=== PATIENT | male | born 1985 | race Caucasian/White ===

== ENCOUNTER 2018-07-26 08:38 | Outpatient (CLI) | payer OTHER ==
[2018-07-26 09:13] LABS: % BASOPHILS 0.5 % (0.0-2.0); % EOSINOPHILS 5.1 % (0.0-5.0); % LYMPHOCYTES 28.8 % (20.0-50.0); % MONOCYTES 9.7 % (2.0-10.0); % NEUTROPHILS 55.9 % (40.0-80.0); EOSINOPHILE ABSOLUTE 0.3 Th/cmm (0.1-0.4); HEMATOCRIT 50.1 % (41.0-60); HEMOGLOBIN 16.8 gm/dL (12-16); LYMPHOCYTE ABSOLUTE 1.8 Th/cmm (1.5-3.0); MEAN CELL VOLUME 95.5 fl (80-99); MEAN CORPUSCULAR HEMOGLOBIN 32.1 pg (26.0-30.0); MEAN CORPUSCULAR HGB CONC 33.6 pg (28.0-36.0); MEAN PLATELET VOLUME 7.8 fl; MONOCYTE ABSOLUTE 0.6 Th/cmm (0.3-1.0); NEUTROPHILE ABSOLUTE 3.4 Th/cmm (1.8-8.0); PLATELET COUNT 307 Th/cmm (150-400); RED BLOOD COUNT 5.24 Mil/cmm (4.30-5.70); RED CELL DISTRIBUTION WIDTH 12.3 % (11.5-20.0); WHITE BLOOD COUNT 6.1 Th/cmm (4.8-10.8)
[2018-07-26 09:27] LABS: BUN - UREA NITROGEN 15 mg/dL (7-25); CALCIUM SERUM 9.5 mg/dL (8.6-10.3); CARBON DIOXIDE 29.8 mEq/L (21.0-31.0); CHLORIDE 104 mEq/L (98-107); CREATININE - SERUM 0.7 mg/dL (0.7-1.3); GFR AFRICAN-AMERICAN > 60.0 ml/min (>90); GFR NON AFRICAN-AMERICAN > 60.0 ml/min; GLUCOSE 116 mg/dL (70-105); POTASSIUM SERUM 3.8 mEq/L (3.5-5.1); SODIUM SERUM 141 mEq/L (136-145)
== END 2018-07-26 09:00 | disposition home or self-care (01) ==
LOC: LAB 08:38
DX: Z01.812 Encounter for preprocedural laboratory examination (principal); I83.893 Varicose veins of bilateral lower extremities with other complications
CPT/HCPCS: 36415-UA; 80048-TC; 85025-TC

== ENCOUNTER 2018-07-28 07:25 | Outpatient (CLI) | payer OTHER ==
[2018-07-28 07:56] LABS: % BASOPHILS 0.8 % (0.0-2.0); % EOSINOPHILS 5.2 % (0.0-5.0); % LYMPHOCYTES 31.9 % (20.0-50.0); % MONOCYTES 10.8 % (2.0-10.0); % NEUTROPHILS 51.3 % (40.0-80.0); EOSINOPHILE ABSOLUTE 0.3 Th/cmm (0.1-0.4); HEMATOCRIT 48.8 % (41.0-60); HEMOGLOBIN 16.3 gm/dL (12-16); LYMPHOCYTE ABSOLUTE 1.6 Th/cmm (1.5-3.0); MEAN CELL VOLUME 95.6 fl (80-99); MEAN CORPUSCULAR HEMOGLOBIN 31.9 pg (26.0-30.0); MEAN CORPUSCULAR HGB CONC 33.4 pg (28.0-36.0); MEAN PLATELET VOLUME 7.7 fl; MONOCYTE ABSOLUTE 0.5 Th/cmm (0.3-1.0); NEUTROPHILE ABSOLUTE 2.6 Th/cmm (1.8-8.0); PLATELET COUNT 287 Th/cmm (150-400); RED BLOOD COUNT 5.11 Mil/cmm (4.30-5.70); RED CELL DISTRIBUTION WIDTH 12.6 % (11.5-20.0)
[2018-07-28 08:10] LABS: INR 0.94 (0.5-1.4); PROTHROMBIN TIME (TEST) 9.8 SECONDS (9.5-11.5)
[2018-07-28 08:13] LABS: ANION GAP 11.3 (7.0-16.0); BUN - UREA NITROGEN 14 mg/dL (7-25); CALCIUM SERUM 9.2 mg/dL (8.6-10.3); CARBON DIOXIDE 28.6 mEq/L (21.0-31.0); CHLORIDE 105 mEq/L (98-107); CREATININE - SERUM 0.6 mg/dL (0.7-1.3); GFR AFRICAN-AMERICAN > 60.0 ml/min (>90); GFR NON AFRICAN-AMERICAN > 60.0 ml/min; GLUCOSE 122 mg/dL (70-105); POTASSIUM SERUM 3.9 mEq/L (3.5-5.1); SODIUM SERUM 141 mEq/L (136-145)
== END 2018-07-28 07:41 ==
LOC: EEVIPCON 07:25 → LAB 07:25
DX: Z01.818 Encounter for other preprocedural examination (principal)
CPT/HCPCS: 36415-UA; 80048-TC; 83036-90; 85025-TC; 85610-TC; 85730-TC

== ENCOUNTER 2019-02-20 06:57 | Inpatient (IN) | payer OTHER ==
[2019-02-20] MEDS ORDERED: cefTRIAXone 1 GM in Sodium Chloride 0.9% 50 ML IV ONE (07:32)
[2019-02-20] MEDS ORDERED: Albuterol/Ipratropium Neb 3 ML AERS HHN ONE ×2 (07:32→08:12)
[2019-02-20 07:49] LABS: % BASOPHILS 0.4 % (0.0-2.0); % EOSINOPHILS 6.5 % (0.0-5.0); % LYMPHOCYTES 21.4 % (20.0-50.0); % MONOCYTES 7.7 % (2.0-10.0); EOSINOPHILE ABSOLUTE 0.4 Th/cmm (0.1-0.4); HEMATOCRIT 47.4 % (41.0-60); HEMOGLOBIN 16.4 gm/dL (12-16); LYMPHOCYTE ABSOLUTE 1.4 Th/cmm (1.5-3.0); MEAN CELL VOLUME 96.6 fl (80-99); MEAN CORPUSCULAR HEMOGLOBIN 33.4 pg (26.0-30.0); MEAN CORPUSCULAR HGB CONC 34.6 pg (28.0-36.0); MONOCYTE ABSOLUTE 0.5 Th/cmm (0.3-1.0); NEUTROPHILE ABSOLUTE 4.4 Th/cmm (1.8-8.0); PLATELET COUNT 300 Th/cmm (150-400); WHITE BLOOD COUNT 6.7 Th/cmm (4.8-10.8)
[2019-02-20 07:59] LABS: INR 0.93 (0.5-1.4)
[2019-02-20 08:14] LABS: DDIMER QUANT 115 ng/mL (100-400)
[2019-02-20 08:30] LABS: ALB/GLOB RATIO 1.3 (1.0-1.8); ALBUMIN 3.9 gm/dL (4.2-5.5); ALKALINE PHOSPHATASE 127 U/L (34-104); ANION GAP 12.5 (7.0-16.0); BILIRUBIN,TOTAL 1.2 mg/dL (0.3-1.0); BUN - UREA NITROGEN 10 mg/dL (7-25); CALCIUM SERUM 9.2 mg/dL (8.6-10.3); CARBON DIOXIDE 25.2 mEq/L (21.0-31.0); CHLORIDE 104 mEq/L (98-107); CHOLESTEROL 178 mg/dL (<200); CREATININE - SERUM 0.6 mg/dL (0.7-1.3); CREATININE KINASE 127 U/L (30-223); GFR AFRICAN-AMERICAN > 60.0 ml/min (>90); GFR NON AFRICAN-AMERICAN > 60.0 ml/min; GLUCOSE 138 mg/dL (70-105); HDL -HIGH DENSITY LIPOPROTEIN 43 mg/dL (23-92); POTASSIUM SERUM 3.7 mEq/L (3.5-5.1); SGOT 20 U/L (13-39); SGPT/ALT 41 U/L (7-52); SODIUM SERUM 138 mEq/L (136-145); TOTAL PROTEIN,SERUM 6.9 gm/dL (6.0-8.3); TRIGLYCERIDES 127 mg/dL (<150)
--- NOTE | 2019-02-20 09:42 | Diagnostic Imaging Report ---
CHEST X-RAY: AP view INDICATION: pain COMPARISON: None FINDINGS: Increased interstitial lung markings are seen. There is elevation of the right hemidiaphragm. Increased bibasal lung markings are noted. No focal consolidation or effusion. Heart size is normal. Osseous structures are intact. IMPRESSION: Increased bibasal lung markings favoring chronic changes, however, superimposed infiltrates of the left base cannot be excluded. Recommend clinical correlation and follow-up. Increased interstitial lung markings clinical correlation recommended.
[2019-02-20] MEDS ORDERED: IOHEXOL 350mgI/mL 150mL IV ONE (09:53)
--- NOTE | 2019-02-20 10:55 | Diagnostic Imaging Report ---
CT Chest PE study Indication: Dyspnea, elevated d-dimer Comparison: Chest x-ray 02/20/2019 Technique: Axial images were obtained from the base of the neck to the upper abdomen, following administration of IV contrast, PE protocol. Multiplanar reconstructions were made. total DLP: 657, [id number] FINDINGS: No evidence of mediastinal lymphadenopathy. Heart size is normal. No evidence of an aortic aneurysm. No pericardial effusion identified. Evaluation of the pulmonary arterial vasculature demonstrates no evidence of pulmonary embolus. Evaluation of the lungs demonstrates mild hypoventilatory and atelectatic changes. There is focal left medial basal airspace disease which may be due to atelectasis versus infiltrate. Faint left upper lobe tree-in-bud airspace disease is noted. There is elevation right hemidiaphragm no pleural effusions. The upper abdomen demonstrates no acute abnormalities. The osseous structures demonstrate no acute abnormalities. IMPRESSION: No evidence of pulmonary embolus. Faint early left upper lobe tree-in-bud infiltrates and additional left medial atelectasis versus focal infiltrate. Early pneumonia cannot be excluded. Clinical correlation and follow-up recommended. Elevation of the right hemidiaphragm.
--- NOTE | 2019-02-20 13:59 | ED Physician Chart ---
ED Chief Complaint/HPI - Patient Information Date Seen:: 02/20/19 Time Seen:: 07:15 Chief Complaint:: Dyspnea History of Present Illness:: onset x one week of fever, cough, congestion, and dyspnea; pt denies H/As, trauma, neck pain, C/P, Abd. Pain, chills, or urinary s/s Allergies:: Allergies Allergy/AdvReac Type Severity Reaction Status Date / Time No Known Allergies Allergy Verified 02/20/19 07:15 Vitals:: Vital Signs - 8 hr 02/20/19 02/20/19 07:16 08:23 Temp 99.0 F HR 84 83 RR 22 18 BP 148/98 O2 Sat % 95 94 Historian:: Patient, Family Member Review:: Nurse's Note Reviewed, Old Chart Reviewed ED Review of Systems - Review of Systems General/Constitutional: No fever, No chills, No weight loss, No weakness, No diaphoresis, No edema, No loss of appetite Skin: No skin lesions, No rash, No bruising Head: No headache, No light-headedness Eyes: No loss of vision, No pain, No diplopia ENT: No earache, No nasal drainage, No sore throat, No tinnitus Neck: No neck pain, No swelling, No thyromegaly, No stiffness, No mass noted Cardio Vascular: No chest pain, No palpitations, No PND, No orthopnea, No edema Pulmonary: No SOB, No cough, No sputum, No wheezing GI: No nausea, No vomiting, No diarrhea, No pain, No melena, No hematochezia, No constipation, No hematemesis G/U: No dysuria, No frequency, No hematuria, No nacturia Musculoskeletal: No bone or joint pain, No back pain, No muscle pain Endocrine: No polyuria, No polydipsia Psychiatric: No prior psych history, No depression, No anxiety, No suicidal ideation, No homicidal ideation, No auditory hallucination, No visual hallucination Hematopoietic: No bruising, No lymphadenopathy Allergic/Immuno: No urticaria, No angioedema Neurological: No syncope, No focal symptoms, No weakness, No paresthesia, No headache, No seizure, No dizziness, No confusion, No vertigo ED Past Medical History - Past Medical History Obtainable: Yes Past Medical History: HTN Family History: HTN Social History: Non Smoker, No Alcohol, No Drug Use, , Employed Surgical History: None Psychiatricy History: None Medication: Reviewed Family Medical History - Family Member Mother History Unknown: Yes ED Physical Exam - Physical Examination General/Constitutional: Awake, Well-developed, well-nourished, Alert, No distress, GCS 15, Non-toxic appearing, Ambulatory Head: Atraumatic Eyes: Lids, conjuctiva normal, PERRL, EOMI Skin: Nl inspection, No rash, No skin lesions, No ecchymosis, Well hydrated, No lymphadenopathy ENMT: External ears, nose nl, TM canals nl, Nasal exam nl, Lips, teeth, gums nl , Oropharynx nl, Tonsils nl Neck: Nontender, Full ROM w/o pain, No JVD, No nuchal rigidity, No bruit, No mass, No stridor Respiratory: Nl effort/Exclusion Other Respiratory comments:: Lungs: + Rales, Rhonchi, and Wheezes Cardio Vascular: RRR, No murmur, gallop, rubs, NL S1 S2, Carotid/Femoral/Distal pulses equal bilaterally GI: No tenderness/rebounding/guarding, No organomegaly, No hernia, Normal BS's, Nondistended, No mass/bruits, No McBurney tenderness : No CVA tenderness Extremities: No tenderness or effusion, Full ROM, normal strength in all extremities, No edema, Normal digits & nails Neuro/Psych: Alert/oriented, DTR's symmetric, Normal sensory exam, Normal motor strength, Judgement/insight normal, Mood normal, Normal gait, No focal deficits Misc: Normal back, No paraspinal tenderness ED Labs/Radiology/EKG Results - Lab Results Results: Laboratory Tests 02/20/19 02/20/19 02/20/19 07:39 07:39 07:39 WBC 6.7 RBC 4.90 Hgb 16.4 Hct 47.4 MCV 96.6 MCH 33.4 H MCHC Differential 34.6 RDW 13.0 Plt Count 300 MPV 7.6 Neutrophils % 64.0 Lymphocytes % 21.4 Monocytes % 7.7 Eosinophils % 6.5 H Basophils % 0.4 PT 9.7 INR 0.93 D-Dimer 115 Sodium 138 Potassium 3.7 Chloride 104 Carbon Dioxide 25.2 Anion Gap 12.5 BUN 10 Creatinine 0.6 L Est GFR ( Amer) > 60.0 Est GFR (Non-Af Amer) > 60.0 BUN/Creatinine Ratio 16.7 Glucose 138 H Calcium 9.2 Total Bilirubin 1.2 H AST 20 ALT 41 Alkaline Phosphatase 127 H Creatine Kinase 127 Troponin I B-Natriuretic Peptide Total Protein 6.9 Albumin 3.9 L Globulin 3.0 Albumin/Globulin Ratio 1.3 Triglycerides 127 Cholesterol 178 LDL Cholesterol Direct 135 HDL Cholesterol 43 02/20/19 02/20/19 07:39 07:39 WBC RBC Hgb Hct MCV MCH MCHC Differential RDW Plt Count MPV Neutrophils % Lymphocytes % Monocytes % Eosinophils % Basophils % PT INR D-Dimer Sodium Potassium Chloride Carbon Dioxide Anion Gap BUN Creatinine Est GFR ( Amer) Est GFR (Non-Af Amer) BUN/Creatinine Ratio Glucose Calcium Total Bilirubin AST ALT Alkaline Phosphatase Creatine Kinase Troponin I < 0.01 L B-Natriuretic Peptide 11.3 Total Protein Albumin Globulin Albumin/Globulin Ratio Triglycerides Cholesterol LDL Cholesterol Direct HDL Cholesterol Comments:: Reviewed - Radiology Results Comments:: + Infiltrates - EKG Interpretations Comments:: Reviewed ED Septic Shock - . Is Septic Shock (SBP<90, OR Lactate>4 mmol\L) present?: No - <6hrs of presentation: Vital Signs: Vital Signs - 8 hr 02/20/19 02/20/19 07:16 08:23 Temp 99.0 F HR 84 83 RR 22 18 BP 148/98 O2 Sat % 95 94 ED Reassessment (Disposition) - Reassessment Reassessment Condition:: Improved - Diagnosis Diagnosis:: Dyspnea; Fever; Cough; Pneumonia; Sepsis; Bronchospasms; Congestion; Hypertension - Aftercare/Follow up Instructions Aftercare/Follow-Up Instructions:: Counseled pt regarding lab results/diagnosis & need follow up, Counseled pt & family regarding lab results/diagnosis & need follow up - Patient Disposition Discharge/Transfer:: Acute Care w/in this hosp Accepting Physician:: Dr. Altamirano Time Called:: 0900 Time Responded:: 09:00 Admitted to:: Telemetry Spoke to:: Dr. Altamirano Admitting Medical Physician:: Dr. Altamirano Condition at Disposition:: Stable, Improved
[2019-02-20] MEDS ORDERED: Albuterol Nebulizer 2.5mg/3mL HHN PRN (16:54)
[2019-02-20] MEDS ORDERED: Azithromycin 500 MG in Sodium Chloride 0.9% 250 ML IV SCH (18:00)
[2019-02-20] MEDS ORDERED: Albuterol Nebulizer 2.5mg/3mL HHN SCH (19:00)
[2019-02-20] MEDS: Albuterol Nebulizer 2.5mg/3mL HHN SCH (19:06)
[2019-02-20] MEDS: Albuterol/Ipratropium Neb 3 ML AERS HHN SCH ×2 (19:09→23:08)
[2019-02-20] MEDS: Budesonide 0.5 Mg/2 mL Ud HHN SCH (19:11)
[2019-02-20] MEDS: methylPREDNISolone SS 40 mg Vial IV SCH (20:09)
[2019-02-20] MEDS: Pantoprazole 40 mg/Packet PO SCH (20:20)
[2019-02-21] MEDS: methylPREDNISolone SS 40 mg Vial IV SCH ×3 (01:05→11:13)
[2019-02-21] MEDS: Albuterol/Ipratropium Neb 3 ML AERS HHN SCH ×3 (03:06→14:28)
--- NOTE | 2019-02-21 05:11 | Consultation ---
DATE OF CONSULTATION: 02/20/2019 PULMONARY AND CRITICAL CARE AND SLEEP MEDICINE CONSULTATION REASON FOR CONSULTATION: To help the patient with shortness of breath, possibly pneumonia. CONSULT NOTE: This is a 33-year-old gentleman, who basically is in a fairly good health, is not taking any medication prior to coming to the hospital except for once in a while a Mucinex. The patient's symptoms started about 7-10 days ago; initially, was coughing. Subsequently, coughing got significantly worse with some yellowish color sputum with questionable low-grade fever as the patient felt weak and started having coughing and some shortness of breath. The patient came to the hospital for further care and necessary treatment. The patient never had these symptoms before. He denies of any hemoptysis. He denied of any chest pain. No swelling of the legs. No sinus chronic congestion. No significant dyspeptic symptoms The patient has a history of loud snoring, but periods of apnea per . He also has very labile weight issue over the last couple of years, though mostly has been heavy side. PAST MEDICAL HISTORY: None significant. 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 SMOKING HISTORY: He smokes 2-3 cigarettes a day, has been smoking for almost last 22 years. He is social drinker. He denies of any illicit drug use. FAMILY HISTORY: Had similar symptoms among his as well as one of his children, but got better. PHYSICAL EXAMINATION: GENERAL: This is a very heavy set gentleman, awake, alert, and oriented, not in any acute distress. VITAL SIGNS: The patient's recorded vital signs, temperature is 98.6, blood pressure is ____, still systolic is slightly on the higher side and the patient's oxygen saturation is in mid 90s on room air and heart rate is in 60s and 80s. HEENT: Examination of the head is essentially unremarkable. Pupils appear to be equal and reacting to light. Conjunctivae are slightly pallor. Oral cavity shows a very small narrow opening with large tongue, elevated tongue. Posterior pharyngeal fossa could not be seen very well. NECK: Neck size is very short, diameter estimated about 20 inches. No palpable nodes in the neck could be appreciated. CHEST: Shows markedly diminished air entry with scattered wheezing. HEART: Regular, distant. ABDOMEN: Quite protuberant. EXTREMITIES: Shows no peripheral edema, no cyanosis or clubbing. LABORATORY DATA: The patient's pertinent laboratory studies: White count is 6.7, hemoglobin is 16.4, MCH is 33, and eosinophils 6.5. Creatinine is 1.06. The patient's blood chemistry is essentially unremarkable with sugar of 138, though this may be nonfasting sample and with total bilirubin of 1.2 and troponin is okay. IMAGING DATA: 1. The patient's chest x-ray is unremarkable except for some haziness in the left lingular segment. 2. CT of the chest shows some patchy infiltrate and/or atelectasis on the left lingular segment. IMPRESSION: 1. The patient has acute asthmatic bronchitis, most likely looks like a viral, though allergy cannot be ruled out totally. 2. Questionable pneumonitis, though this could be old scarring or obstructive atelectasis. 3. Severe morbid obesity with obesity hypoventilation syndrome complicated by strongly suspect sleep apnea syndrome. 4. Morbid obesity. 5. Question of essential hypertension. 6. Possibly diabetes mellitus, early stage. PLANS AND SUGGESTIONS: Discussed with him at length. We will go ahead and treat asthmatic bronchitis with bronchodilator, inhaled steroid. We will give Rocephin, Vasotec, and Zithromax and also will give some GI prophylactic medication. We will repeat blood gasses, some metabolic panel, hemoglobin A1c, thyroid panel, etc. and see how he does and go from there. JOB# [id number]
[2019-02-21] MEDS: Pantoprazole 40 mg/Packet PO SCH (06:34)
[2019-02-21] MEDS: Albuterol Nebulizer 2.5mg/3mL HHN SCH ×3 (07:13→14:29)
[2019-02-21] MEDS: Budesonide 0.5 Mg/2 mL Ud HHN SCH (07:14)
--- NOTE | 2019-02-21 08:33 | History and Physical ---
History of Present Illness - HPI Chief Complaint: Dyspnea HPI: 33 y/o male who presents to [facility] ER for coughing with yellowish sputum, fever, congestion, dyspnea for the past 1 week with low grade fever. Patient initial vitals were T 99.0 P84 R22 BP148/98. While in the ER patient had a chest xray which revealed increased bibasal lung markings with superimposed imfiltrates of the left base. CT chest shows early left atelectasis /early PNA. Patient had initial labwork done in the ER which was the following... WBC 6.7 H/H 16.4/47.4 plat 300K Na 138 K 3.7 Bun 10/0.6 glu 138 cholesterol 178 HDL 43 LDL 135 trig 178 TOB use+ 2-3 cigarettes/day x 22yrs Patient was subsequently admitted to [facility] for further evaluation and treatment. Vital Signs: Last Vital Signs Temp 97.5 F 02/21/19 00:00 Pulse 96 02/21/19 07:24 Resp 18 02/21/19 07:24 BP 125/64 02/21/19 00:00 Pulse Ox 97 02/21/19 07:24 Past Medical History Cardiovascular: Report: HTN Pulmonary: Report: No Pertinent Hx SILK SCREEN CUTTER: Report: No Pertinent Hx GI: Report: No Pertinent Hx Psych: Report: No Pertinent Hx Musculoskeletal: Report: No Pertinent Hx Rheumatologic: Report: No pertinent Hx Infectious Disease: Report: No Pertinent Hx Renal/: Report: No Pertinent Hx Endocrine: Report: No Pertinent Hx Dermatology: Report: No Pertinent Hx - Past Surgical History Past Surgical History: No pertinent Hx Family Medical History - Family Member Mother History Unknown: Yes Social History Smoke: <1 pack per day (2-3 cigaretts per day x 22 yrs) Alcohol: Social Drugs: None Lives: With Family - Medications Home Medications: Home Medication Medication Instructions Recorded Type guaiFENesin [Mucinex] 600 mg PO BID 02/20/19 History - Allergies Allergies/Adverse Reactions: Allergies Allergy/AdvReac Type Severity Reaction Status Date / Time No Known Allergies Allergy Verified 02/20/19 07:15 Review of Systems - Review of Systems Constitutional: Report: No Significant Eyes: Report: No Significant ENT: Report: No Significant Respiratory: Report: Cough Cardiovascular: Report: No Significant Gastrointestinal: Report: No Significant Genitourinary: Report: No Significant Musculoskeletal: Report: No Significant Skin: Report: No Significant Neurological: Report: No Significant Physical Exam - Physical Exam HEENT: Report: Ears Nose Throat within normal limits, Pharnyx within normal limits Neck: Report: Within normal limits Cardiovascular Systems: Report: +s1/s2 noted, Regular, Rate and Rhythm Respiratory: Report: Wheezing Abdomen: Report: Non-tender to palpation, Tender to palpation Back: Report: Inspection of back is within normal limits. Extremities: Report: Non-tender to palpation. Skin: Report: Color of skin is within normal limits Neuro/Psych: Report: Mood affect is within normal limits, A+Ox3 - Lab Results All Lab Results last 24 hours: Laboratory Results - last 24 hr 02/20/19 07:39 Sodium 138 Potassium 3.7 Chloride 104 Carbon Dioxide 25.2 Anion Gap 12.5 BUN 10 Creatinine 0.6 L Est GFR ( Amer) > 60.0 Est GFR (Non-Af Amer) > 60.0 BUN/Creatinine Ratio 16.7 Glucose 138 H Calcium 9.2 Total Bilirubin 1.2 H AST 20 ALT 41 Alkaline Phosphatase 127 H Creatine Kinase 127 Total Protein 6.9 Albumin 3.9 L Globulin 3.0 Albumin/Globulin Ratio 1.3 Triglycerides 127 Cholesterol 178 LDL Cholesterol Direct 135 HDL Cholesterol 43 - Assessment Assessment: Current Active Problems Problem Status Onset DYSPNEA WITH COUGH/CONGESTION Acute left PNA acute asthmatic bronchitis viral pneumonitis severe morbid obesity HTN - Plan Plan: admit to med surg continue IV rocephin, IV zithromycin breathing treatment inhaled steroids pulmonary consult continue home meds repeat chest xray
--- NOTE | 2019-02-21 09:35 | Diagnostic Imaging Report ---
Portable chest x-ray Time: 0 733 History: Pneumonia COMPARISON: 02/20/2019 Allowing for portable technique the heart size is normal. No focal pulmonary parenchymal processes. No hilar or mediastinal abnormalities. Impression: No acute abnormalities.
[2019-02-21 09:42] LABS: HEMATOCRIT 49.9 % (41.0-60); HEMOGLOBIN 17.1 gm/dL (12-16); MEAN CELL VOLUME 96.8 fl (80-99); MEAN CORPUSCULAR HEMOGLOBIN 33.1 pg (26.0-30.0); MEAN CORPUSCULAR HGB CONC 34.2 pg (28.0-36.0); PLATELET COUNT 330 Th/cmm (150-400); RED BLOOD COUNT 5.16 Mil/cmm (4.30-5.70); RED CELL DISTRIBUTION WIDTH 12.8 % (11.5-20.0); WHITE BLOOD COUNT 8.3 Th/cmm (4.8-10.8)
[2019-02-21 09:44] LABS: ALB/GLOB RATIO 1.4 (1.0-1.8); ALBUMIN 4.2 gm/dL (4.2-5.5); ALKALINE PHOSPHATASE 130 U/L (34-104); ANION GAP 16.3 (7.0-16.0); BUN - UREA NITROGEN 10 mg/dL (7-25); CALCIUM SERUM 9.9 mg/dL (8.6-10.3); CARBON DIOXIDE 21.2 mEq/L (21.0-31.0); CHLORIDE 104 mEq/L (98-107); CREATININE - SERUM 0.6 mg/dL (0.7-1.3); GFR AFRICAN-AMERICAN > 60.0 ml/min (>90); GFR NON AFRICAN-AMERICAN > 60.0 ml/min; GLUCOSE 266 mg/dL (70-105); POTASSIUM SERUM 3.5 mEq/L (3.5-5.1); SGOT 17 U/L (13-39); SGPT/ALT 44 U/L (7-52); SODIUM SERUM 138 mEq/L (136-145); TOTAL PROTEIN,SERUM 7.3 gm/dL (6.0-8.3)
[2019-02-21 10:57] LABS: BAND NEUTROPHILE 1 % (0-10); LYMPHOCYTE 7 % (20-50); NEUTROPHILS 91 % (40-80)
[2019-02-21 10:58] LABS: BASOPHIL 0 % (0-3); EOSINOPHIL 0 % (0-5); MONOCYTE 1 % (2-10)
--- NOTE | 2019-02-21 20:06 | Progress Notes ---
DATE: 02/21/2019 PULMONARY PROGRESS NOTE PROBLEM LIST: 1. Acute asthmatic bronchitis. 2. Questionable infiltrate bilaterally, though very minimally. 3. Significant morbid obesity. 4. Suspect sleep apnea syndrome, otherwise unremarkable. SYMPTOMS: Nil. The patient is feeling much better, very minimal coughing, not much wheezing and wants to go home. PHYSICAL EXAMINATION: VITAL SIGNS: The patient's recorded vital signs, temperature is 98.2, blood pressure is 153/78 and saturation is in mid 90s on room air. NECK: Veins not visualized. CHEST: Shows diminished air entry with occasional rhonchi. HEART: Regular. ABDOMEN: Soft, nontender. IMAGING: Chest x-ray is clear, single AP view. LABORATORY DATA: The patient's white count is 8.3, hemoglobin 17 grams, neutrophil is 91 and the patient's electrolytes are okay and glucose is 266 on the higher side. The patient's TSH is okay and the patient's hemoglobin A1c is pending. ASSESSMENT: 1. The patient clinically appears to be stable. 2. Hyperglycemia partly is because of steroid. PLANS AND SUGGESTIONS: 1. Okay pulmonary jones to go discharge and we will put the patient on Symbicort or Dulera inhaler twice a day. 2. We will give Medrol Dosepak, we will give Protonix, also we will give Levaquin for 5-6 days and may need to be followed up as an outpatient for sleep apnea syndrome, etc., and go from there. JOB# [id number]
[2019-02-22 07:07] LABS: A1C 6.7 % (4.8-5.6)
--- NOTE | 2019-02-22 08:59 | Discharge Summary ---
DATE OF DISCHARGE: 02/21/2019 PRELIMINARY DIAGNOSES: 1. Left lobe pneumonia. 2. Acute asthmatic bronchitis. 3. Pneumonitis. 4. Severe morbid obesity. 5. Hypertension. 6. Elevated blood sugar. DISCHARGE DIAGNOSES: 1. Left lobe pneumonia. 2. Acute asthmatic bronchitis. 3. Pneumonitis. 4. Severe morbid obesity. 5. Hypertension. 6. Elevated blood sugar. BRIEF HISTORY OF PRESENT ILLNESS: This is a 33-year-old male who presents to [facility] ER for a 1-week history of coughing yellowish sputum, fever, congestion, and dyspnea. The patient's initial vitals while in the ER was 99.0 temperature, pulse 84, respirations 22, blood pressure 140/98. The patient has a known history of hypertension. While in the ER, initial chest x-ray revealed increased bibasilar lung markings with a superimposed infiltrate at the left base. CT of the chest was ordered, which showed early left atelectasis and pneumonia. Initial lab work done in the ER. White count was 6.7, hemoglobin 16.4, hematocrit 47.4, platelets 300,000. Sodium 138, potassium 3.7, BUN 10, creatinine 0.6, glucose 138, cholesterol 178, HDL 43, LDL 135, triglycerides 178. The patient has a history of smoking for the past 22 years, smokes 2-3 cigarettes per day. The patient was subsequently admitted for further evaluation and treatment. HOSPITAL COURSE: The patient improved during his hospital stay, was initially started on IV Rocephin through the ER and was also given IV azithromycin, given breathing treatments and inhaled steroids, was seen by Pulmonary, Dr. Daniel Boggs as outpatient. Repeat chest x-ray had been ordered on , which showed some improvement. The patient felt much better, less shortness of breath. He was subsequently discharged in stable condition, was given a course of Levaquin, was advised to continue with the inhaled steroids and follow up with his regular physician as outpatient. [facility]# [id number]
[2019-02-22 11:32] LABS: T3 FREE 3.1 pg/mL (2.0-4.4); T4 FREE 1.4 ng/dL (0.82-1.77)
== END 2019-02-21 14:50 | disposition home or self-care (01) | DRG 871 ==
LOC: ER 06:57 → MSI 14:44
PROVIDERS: ADMIT Family Medicine; ATTEND Family Medicine
DX: A41.9 Sepsis, unspecified organism (principal); J18.9 Pneumonia, unspecified organism; J18.1 Lobar pneumonia, unspecified organism; Z68.43 Body mass index [BMI] 50.0-59.9, adult; E66.2 Morbid (severe) obesity with alveolar hypoventilation; J98.11 Atelectasis; J20.8 Acute bronchitis due to other specified organisms; I10 Essential (primary) hypertension; R73.9 Hyperglycemia, unspecified; T38.0X5A Adverse effect of glucocorticoids and synthetic analogues, initial encounter; Y92.89 Other specified places as the place of occurrence of the external cause; Z87.891 Personal history of nicotine dependence
CPT/HCPCS: 36415-UA; 71045-TC; 71275-TC; 80053-TC; 80061-TC; 82550-TC; 83036-90; 83880-TC; 84439-90; 84443-TC; 84479-90; 84484-TC; 85007-TC; 85025-TC; 85379-TC; 85610-TC; 93005; 94640; 94760; J0456; J0696; J2920; J7613